=== PATIENT | male | born 1995 | race Hispanic/Latino ===

== ENCOUNTER 2019-12-05 17:51 | Emergency (ER) | payer MEDICAID, SELFPAY ==
[2019-12-05] MEDS ORDERED: Iopamidol 370 76% 100 ML VIAL IV ONE (17:52)
[2019-12-05] MEDS ORDERED: Ondansetron PF 4 MG/2 ML Vial ONE (18:23)
[2019-12-05] MEDS ORDERED: Sodium Chloride 0.9% 1,000 ML ONE (18:23)
[2019-12-05] MEDS ORDERED: Ketorolac Tromethamine 30 MG/ML VIAL ONE (18:23)
[2019-12-05 18:43] LABS: Band 2 % (5-11); Eosinophils 1 % (0-10); Hemoglobin 15.2 g/dL (14.0-18.0); MDiff Complete? YES; Mean Corpuscular HGB CONC 31.9 g/dL (32.0-36.0); Mean Corpuscular Hemoglobin 27.8 pg (27.0-31.0); Mean Corpuscular Volume 87.2 fL (78.0-98.0); Mean Platelet Volume 8.1 fL (7.4-10.4); Metamyelocyte 1 % (0-0); Monocytes 1 % (0-10); Neutrophil 89 % (42-75); Platelet Count 412 thou/uL (130-400); Platelet Morphology Comment Appears Increased; RBC Morphology Normal; Reactive Lymphocytes 6 % (0-10); Red Blood Cell (RBC) Count 5.45 mill/uL (4.70-6.10); White Blood Cell (WBC) Count 17.9 thou/uL (4.8-10.8)
[2019-12-05 18:45] LABS: ALT (SGPT) 13 U/L (8-55); AST (SGOT) 12 U/L (5-34); Albumin 4.4 g/dL (3.5-5.0); Alkaline Phosphatase 111 U/L (40-110); Anion Gap 19 mmol/L (10-20); BUN (Urea Nitrogen) 11 mg/dL (8.9-20.6); Bilirubin, Total 0.4 mg/dL (0.2-1.2); Calc. Creatinine Clearance 0 mL/min (70-130); Calcium 9.7 mg/dL (7.8-10.44); Carbon Dioxide 19 mmol/L (22-29); Chloride 105 mmol/L (98-107); Estimated GFR-MDRD Greater than 90; Globulin 3.8 g/dL (2.4-3.5); Glucose 108 mg/dL (70-105); Lipase 11 U/L (8-78); Potassium 3.5 mmol/L (3.5-5.1); Protein, Total 8.2 g/dL (6.0-8.3); Sodium 139 mmol/L (136-145)
[2019-12-05] MEDS ORDERED: Piperacillin/Tazobactam 3.375 GM VIAL ONE (19:34)
[2019-12-05] MEDS ORDERED: Sodium Chloride 0.9% 100 ML ONE (19:35)
[2019-12-05] MEDS ORDERED: metroNIDAZOLE 500 MG/100 ML BAG ONE (19:37)
--- NOTE | 2019-12-05 19:38 | CT ---
CT OF THE ABDOMEN AND PELVIS WITH IV CONTRAST INDICATION: Elevated white count with history of diverticulitis COMPARISON: None FINDINGS: ABDOMEN: Lung bases: Clear Liver: No focal lesion. Gallbladder: Normal appearing. Pancreas: Normal. Adrenal glands: Normal. Spleen: Normal. Kidneys and ureters: Normal. No hydronephrosis. Vasculature: Normal. Lymph nodes:No lymphadenopathy. Free fluid in abdomen:No free fluid is evident. PELVIS: Small and large bowel: There is wall thickening with scattered diverticula and surrounding pericoloni c inflammatory stranding involving the mid descending colon. There is a 2.3 cm fluid and gas collection seen adjacent to the left lateral margin of the mid descending colon on image 61 of series 2 suspicious for small contained perforation. There is upstream dilatation of the proximal descending colon, splenic flexure, transverse colon and ascending colon suspicious for mild partial c olonic obstruction. This transitions at the level of wall thickening and inflammatory stranding of the mid descending colon. Appendix:Normal Bladder: Normal. Rectal and perirectal soft tissues:Normal. Reproductive structures: Normal. Free fluid in pelvis: No free fluid is evident. Lymphadenopathy pelvis: No lymphadenopathy is evident. Osseous structures: No acute osseous abnormality. No destructive osteolytic or osteoblastic lesion i s identified. Soft tissues:Normal. IMPRESSION: 1. Wall thickening with inflammatory stranding involving the mid descending colon with scattered dive rticula is suspicious for a focus of colonic diverticulitis. There is a small pericolonic fluid and gas collection measuring 2.3 cm suspicious for small contained perforation. Recommend spot follow-up CT imaging after abatement of the patient's acute symptoms to confirm resolution of the prominent wall thickening involving the mid descending colon. Malignancy is felt to be less likely but cannot b e excluded based on the current images. 2. Mild partial colonic obstruction likely related to the narrowing at the level of the mid descendin g colon from the active inflammatory change and wall thickening within this location.
[2019-12-05] MEDS ORDERED: Fentanyl 100 MCG/2 ML VIAL ONE (22:21)
[2019-12-06] MEDS ORDERED: Ondansetron PF 4 MG/2 ML Vial IVP PRN (00:10)
[2019-12-06] MEDS ORDERED: Acetaminophen 325 MG TAB PO PRN (00:10)
[2019-12-06] MEDS ORDERED: Ketorolac Tromethamine 30 MG/ML VIAL IVP PRN (00:11)
[2019-12-06] MEDS ORDERED: Morphine 2 MG/ML SYRINGE SLOW IVP PRN (00:15)
[2019-12-06] MEDS ORDERED: D5 1/2 NS w/20 mEq KCL 1,000 ML IV SCH (00:15)
[2019-12-06] MEDS ORDERED: Morphine 4 MG/ML VIAL SLOW IVP PRN (00:16)
[2019-12-06] MEDS ORDERED: Piperacillin/Tazobactam 3.375 GM in Sodium Chloride 0.9% 100 ML IVPB SCH (03:00)
[2019-12-06] MEDS ORDERED: metroNIDAZOLE 500 MG in Premix Bag 1 BAG IVPB SCH (04:00)
== END 2019-12-05 22:20 | disposition short-term general hospital (02) ==
LOC: MADERS 17:51
DX: K57.32 Diverticulitis of large intestine without perforation or abscess without bleeding (principal); F17.210 Nicotine dependence, cigarettes, uncomplicated
CPT/HCPCS: 74177; 80053; 83690; 85025; 96361; 96365; 96375; J1885; J2405; J2543; J3010; J3490; J7050; Q9967